=== PATIENT | female | born 2000 | race Caucasian/White ===

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

== ENCOUNTER → 2020-02-06 | Outpatient (CLI) | payer BC, SELFPAY | END | disposition home or self-care (01) | PROVIDERS: PCP Family Medicine; Visit Provider Family Medicine | DX: B34.9 Viral infection, unspecified (principal) | CPT/HCPCS: 87635; U0003 ==

== ENCOUNTER → 2020-05-03 16:05 | Outpatient (CLI) | payer BC, MEDICAID, SELFPAY ==
[2020-05-03 17:29] LABS: Absolute Lymphocyte Count 1.63 X10^3/uL (0.83-4.51); Absolute Neutrophil Count 9.4 X10^3/uL (2.0-7.7); Basophil# 0.05 X10^3/uL; Basophil% 0.4 % (0-1); Eosinophil# 0.01 X10^3/uL; Eosinophils% 0.1 % (0-5); Hematocrit 41.5 % (37-47); Hemoglobin 13.6 g/dL (12.0-15.0); Lymphocyte # 1.63 X10^3/ul (4.0); Lymphocyte % 13.8 % (19-41); Mean Corp Hgb Conc 32.8 g/dL (32-36); Mean Corpuscular Hgb 29.2 pg (27.0-32.0); Mean Corpuscular Volume 89.2 fL (81-99); Mean Platelet Vol. 10.7 fl (6.2-12.0); Monocyte# 0.72 X10^3/uL; Monocyte% 6.1 % (0-10); NRBC Flagged by Analyzer 0 % (0-5); Neutrophil # 9.37 X10^3/uL (2.7-7.7); Neutrophil % 79.2 % (47-70); Platelet Count 343 K/mm3 (150-450); RBC Distribution Width CV 12.7 % (11.6-14.6); RBC Distribution Width SD 41.3 fl (35.1-43.9); Red Blood Count 4.65 M/mm3 (4.2-5.4); White Blood Count 11.8 K/mm3 (4.4-11.0)
[2020-05-04 09:13] LABS: HIV - WCH Non-Reactive (Nonreactive); Hepatitis B Surface Antigen Non-Reactive (Nonreactive); Hepatitis C Antibody Non-Reactive (Nonreactive); Rubella IgG Reactive (Nonreactive)
[2020-05-06 03:03] LABS: Prenatal RPR NONREACTIVE (NONREACTIVE)
[2020-05-07 03:07] LABS: Chlamydia By Nucleic Acid AMP Negative (Negative)
[2020-05-07 20:09] LABS: Gonococcus By Nucleic Acid AMP Negative (Negative)
== END ==
PROVIDERS: PCP Family Medicine; Visit Provider Obstetrics & Gynecology
DX: Z11.3 Encounter for screening for infections with a predominantly sexual mode of transmission (principal); Z32.01 Encounter for pregnancy test, result positive
CPT/HCPCS: 36415; 85025; 86703; 86762; 86803; 87086; 87088; 87340; 87491; 87591

== ENCOUNTER → 2020-05-06 | Outpatient (CLI) | payer BC, MEDICAID, SELFPAY | END | disposition home or self-care (01) | LOC: LABSPEC 15:23 | PROVIDERS: PCP Family Medicine; Visit Provider Obstetrics & Gynecology | DX: N89.8 Other specified noninflammatory disorders of vagina (principal) | CPT/HCPCS: 87255 ==

== ENCOUNTER → 2020-08-31 | Outpatient (CLI) | payer BC, MEDICAID, SELFPAY ==
[2020-08-31 15:54] LABS: Hemoglobin 11.6 g/dL (12.0-15.0); Mean Corp Hgb Conc 33.1 g/dL (32-36); Mean Corpuscular Hgb 30.8 pg (27.0-32.0); Mean Corpuscular Volume 92.8 fL (81-99); Mean Platelet Vol. 11.6 fl (6.2-12.0); Platelet Count 293 K/mm3 (150-450); RBC Distribution Width CV 13.1 % (11.6-14.6); Red Blood Count 3.77 M/mm3 (4.2-5.4); White Blood Count 14.6 K/mm3 (4.4-11.0)
[2020-08-31 15:59] LABS: Glucose Challenge Gest 1H 50g 86 mg/dL (70-140)
== END | disposition home or self-care (01) ==
LOC: LABSPEC 13:36
PROVIDERS: PCP Family Medicine; Visit Provider Obstetrics & Gynecology
DX: Z34.82 Encounter for supervision of other normal pregnancy, second trimester (principal)
CPT/HCPCS: 82950; 85027

== ENCOUNTER 2020-11-02 12:00 | Outpatient (RCR) | payer MEDICAID, SELFPAY ==
--- NOTE | 2020-10-13 14:53 | HP.PTEVAL_ITS ---
Patient's Visit Information CHRISTINA SANCHEZ is a 19 year old F referred to Physical Therapy by Dr. Darinel Jacobs MD with a diagnosis of BACK PAIN WITH . Date of Evaluation: 10/13/20 Physical Therapist: Belinda Ingram PT, Cert MDT - Visit Plan Frequency: 2-3x /Week Duration: 4-6 Weeks Plan: AQUATIC THERAPY FOR PAIN RELEIF, POSTURE CORRECTION/STRENGTHENING, INSTRUCTION IN APPROPRIATE BODY MECHANICS AND ACTIVITY MODIFICATIONS. DLS STARTING WITH A NEUTRAL SPINE PROGRESSING ROM TOLERATED. NAHUM LE ROM, STRETCHING AND STRENGTHENING. HEP INSTRUCTION. - Subjective 30 WEEKS . Work/Leisure: CURRENTLY NOT WORKING. LIVING WITH MOM CURRENTLY BUT PLANNING TO MOVE OUT IN A MONTH OR TWO. Disability: NO. Present symptoms: LOW BACK PAIN. NAHUM HIP PAIN. ALSO NECK, UPPER AND MID BACK PAIN AT TIMES. RLS. PATIENT REPORTS TIGHTNESS IN LEGS WITH PROLONGED SITTING BUT DENIES NAHUM LE NUMBNESS AND TINGLING. NAHUM HAND AND ARM TINGLING IF SHE LAYS DOWN TOO LONG. COMES AND GOES. FREQUENT HELEN HORSES IN LEGS. Present since: APR 2020. Pain Scale: WORST 9/10, LEAST 3/10. Currently: /10. Commenced as a result of: CHRONIC LBP FOR NO APPARENT REASON. WORSE WITH . Symptoms at onset: LOW BACK PAIN. Worse: WALKING AROUND IN STORES, SITTING TOO LONG, SLEEPING ON SIDES BECAUSE OF (PRIOR TO WAS A STOMACH SLEEPER). Better: NOTHING. Disturbed sleep: YES. Previous history/Previous treatment: UNREMARKABLE. Coughing/sneezing/straining: POSITIVE. Gait: PATIENT REPORTS HER BACK PAIN IS CAUSING HER TO WALK MORE STIFF AND SHE IS WADDLING DUE TO . REPORTS GAIT IS TIME AND DISTANCE LIMITED DUE TO BACK PAIN. Difficulty initiating urinatin: NO. Accidents: NO. Unexplained weight loss: NO. Imaging: NONE. PMH/Recent major surgery: ADD, ADHD, DEPRESSION, ANXIETY AND DYSLEXIA. L FOOT FRACTURE 8TH GRADE - CLICKS BUT NO PAIN. OTHER: PATIENT REPORTS SHE HAS A 13 WK OLD LAB PUPPY AND SHE HAS BEEN BENDING, LIFTING AND TWISTING TO CARE FOR HER. - Objective Sitting/Standing Posture: POOR. FORWARD HEAD. VERY SLOUCHED THROUGHOUT SESSION. Lordosis: NORMAL TO INCREASED. Lateral shift: NO. Relevant shift: N/A. Active Correction of posture: WORSE. Other Observations: INDEP GAIT AND TRANSFERS WITHOUT ASSISTIVE DEVICE. Motor deficit: NAHUM UE'S AND LE'S 5/5 EXCEPT HIPS AND SCAPULAR REGIONS GRADED 4/5. Sensory deficit: NAHUM UE AND LE LIGHT TOUCH SENSATION INTACT AND SYMMETRICAL. ROM deficit: NAHUM UE'S AND LE'S WFL. Reflexes: 2/3 NAHUM UE'S AND LE'S. Dural Signs: NEGATIVE NAHUM UE'S AND LE'S. Lumbar mvmt loss: flex - MOD. ext - NIL. R SG - NIL. L SG - NIL. CERVICAL MVMT LOSS: CERVICAL ROM WFL ALL PLANES. THORACIC MVMT LOSS: NAHUM ROT WFL. PATIENT C/O INCREASED PAIN WITH ALL SPINE TESTING. Core strength: POOR. Palpation: PATIENT C/O TENDERNESS THROUGHOUT HER SPINE WITH LIGHT PALPATION. TREATMENT: NEUROMUSCULAR REEDUCATION - RETRAINING OF MVMT AND POSTURE FOR SITTING, LYING AND STANDING ACTIVITIES. SPECIFICALL SPENT TIME WITH INSTRUCTION REGUARDING PUPPY CARE. - Goals Goal 1:: DECREASE C/O BACK PAIN Goal Time Frame: 4-6 Weeks Goal 2:: IMPROVE WALKING, SITTING, STANDING, SLEEP, SOCIAL LIFE, TRAVEL AND WORK/HOMEMAKING FUNCTION. Goal Time Frame: 4-6 Weeks Goal 3:: INSTRUCT IN PROPHYLAXIS Goal Time Frame: 4-6 Weeks - Anticipated Interventions Patient/Client Instruction: Educate patient on: Condition, Plan of Care, Risk Factors For the Purpose of:: To improve self management Therapeutic Exercise to Include: Strength training, Body mechanics, Postural training, Neuromotor development, In an aquatic setting, Dynamic Lumbar Stabilization For the Purpose of:: To decrease pain, To improve muscle performance and motor function, To increase tolerance to activity/condition/position, To improve ability of physical actions for home/community/work/leisure Thank you for the opportunity to evaluate your patient. For Medicare and Medicare HMO plans, please review the plan of care and approve it. It will need to be FAXED BACK to us at [phone] for Medicare purposes. For Medicare only, by signing this I certify the plan of care. Please let me know if there are questions or concerns regarding this plan of care. Physician Signature: ____Date:
--- NOTE | 2021-02-22 13:28 | HP.PT.NRP ---
CHRISTINA GUERRERO LAURA was seen in my office for initial evaluation on 10/13/20. The following Plan of Care was established for this patient: Initial Frequency: 2-3x /Week Initial Duration: 4-6 Weeks Patient/Client Instruction: Educate patient on: Condition, Plan of Care, Risk Factors For the Purpose of:: To improve self management Therapeutic Exercise to Include: Strength training, Body mechanics, Postural training, Neuromotor development, In an aquatic setting, Dynamic Lumbar Stabilization For the Purpose of:: To decrease pain, To improve muscle performance and motor function, To increase tolerance to activity/condition/position, To improve ability of physical actions for home/community/work/leisure This patient was last seen in our office 11/02/20. Pertinent comments regarding their Physical therapy will appear below: This patient has not returned to Physical Therapy and is appropriate to return to MD for further follow-up as needed. At this point I will be discontinuing this patient from physical therapy. I would be happy to see this patient again in the future if found appropriate by the physician. Thank you! Belinda Ingram, PT, Cert MDT Balance/Gait/Functional tests - Balance/Special Test Scores Oswestry Low Back Score: 24
== END 2020-11-02 19:00 | disposition home or self-care (01) ==
LOC: PT 12:00
PROVIDERS: PCP Family Medicine; Referring Provider Obstetrics & Gynecology; Visit Provider Obstetrics & Gynecology
DX: O26.90 Pregnancy related conditions, unspecified, unspecified trimester (principal); M54.9 Dorsalgia, unspecified; Z3A.00 Weeks of gestation of pregnancy not specified
CPT/HCPCS: 97112; 97113; 97162

== ENCOUNTER 2020-11-08 19:40 | Outpatient (CLI) | payer MEDICAID, SELFPAY ==
[2020-11-08 20:10] VITALS: PULSE 114; O2SAT 97
[2020-11-08 20:13] VITALS: BP 113/72; PULSE 110; TEMP 36.1
[2020-11-08 20:36] VITALS: BMI 33.6
[2020-11-08 21:02] LABS: Color, Urine Yellow (Yellow); Glucose, Dipstick Normal (Normal); Ketone-Dipstick Negative (Negative); Leukocyte Esterase-Dipstick 500 /ul (Negative); Nitrite-Dipstick Negative (Negative); Occult Blood-Urine Negative /ul (Negative); Protein-Dipstick 30 mg/dl (Negative); Urine Bilirubin Dipstick Negative (Negative); Urine Clarity Sl. Cloudy (Clear); Urine Urobilinogen 1 mg/dl (Normal)
[2020-11-08 21:24] VITALS: PULSE 86; O2SAT 100
[2020-11-08] MEDS: Nitrofurantoin Macrocrystals 100 MG Capsule PO (22:48)
--- NOTE | 2020-11-09 08:35 | OB.TRI.NOTE ---
HPI - General HPI Narrative CHRISTINA SANCHEZ, is a 20 FG1 @ 34 wga who presents with c/o lower abdominal pain. Maternal Data Information CHERRY Calculator Estimated Delivery Date Method Current WG Current Estimate 12/20/20 Manual 34w 1d PFSH PFSH Home Medications [id number] [] 1 tab PO DAILY 11/08/20 [History Last Taken 11/08/20 08:00] valacyclovir [Valtrex] 1,000 mg PO DAILY 11/08/20 [History Last Taken 11/08/20 08:00] Allergy/AdvReac Type Severity Reaction Status Date / Time No Known Allergies Allergy Verified 11/08/20 20:40 Social History Smoking Status: Never smoker History 1 Elective abortions Hx Para 0 Spontaneous abortions Hx # Term Pregnancies Ectopic pregnancies Hx # Pregnancies Multiple births # of living children NST FHR Rate Baby A Baseline: 130 Variability:: Moderate Accelerations:: 15 x 15 Decelerations:: None NST Reactive:: Yes FHR Category:: Category I Uterine Activity:: 09/23 Assessment & Plan (1) 34 weeks gestation of : PLAN: Cervix unfavorable per RN exam, no evidence of labor (2) Cystitis: COMMENT: U/A suggests UTI PLAN: Macrbid x 1 given Pt to order picker rx today Ucx pending
== END 2020-11-08 23:00 | disposition home or self-care (01) ==
LOC: WPOUT 19:46 → WP 19:47
PROVIDERS: PCP Family Medicine; Visit Provider Obstetrics & Gynecology
DX: O23.13 Infections of bladder in pregnancy, third trimester (principal); Z3A.34 34 weeks gestation of pregnancy
CPT/HCPCS: 59025; 59050; 81002; 87086; 87088; 99218; G0378

== ENCOUNTER 2020-11-16 19:00 | Outpatient (CLI) | payer MEDICAID, SELFPAY ==
[2020-11-16 19:24] VITALS: PULSE 107; O2SAT 97
[2020-11-16 19:29] VITALS: PULSE 98; O2SAT 98
[2020-11-16 19:35] VITALS: BP 107/68; PULSE 107
[2020-11-16 19:45] VITALS: BMI 33.5
--- NOTE | 2020-11-16 20:46 | OB.TRI.NOTE ---
HPI - General HPI Narrative CHRISTINA SANCHEZ, is a 20 F who presents contractions Maternal Data Information CHERRY Calculator Estimated Delivery Date Method Current WG Current Estimate 12/20/20 Manual 35w 2d PFSH PFSH Home Medications [id number] [] 1 tab PO DAILY 11/08/20 [History Last Taken 11/16/20 09:00] valacyclovir [Valtrex] 1,000 mg PO DAILY 11/08/20 [History Last Taken 11/16/20 09:00] Allergy/AdvReac Type Severity Reaction Status Date / Time No Known Allergies Allergy Verified 11/16/20 19:48 Social History Smoking Status: Never smoker History 1 Elective abortions Hx Para 0 Spontaneous abortions Hx # Term Pregnancies Ectopic pregnancies Hx # Pregnancies Multiple births # of living children NST FHR Rate Baby A Baseline: 120 Variability:: Moderate Accelerations:: 15 x 15 Decelerations:: None NST Reactive:: Yes Uterine Activity:: Every 5 to 10minutes Assessment & Plan (1) : PLAN: Patient arrives with contractions. 1 cm no sign of labor. Okay to discharge home follow-up at scheduled appointments
== END 2020-11-16 21:18 | disposition home or self-care (01) ==
LOC: WPOUT 19:06 → WP 19:07
PROVIDERS: PCP Family Medicine; Visit Provider Obstetrics & Gynecology
DX: Z34.93 Encounter for supervision of normal pregnancy, unspecified, third trimester (principal); Z3A.35 35 weeks gestation of pregnancy
CPT/HCPCS: 59025; 59050; 99218; G0378

== ENCOUNTER → 2020-12-01 | Outpatient (CLI) | payer MEDICAID, SELFPAY | END | disposition home or self-care (01) | LOC: LABSPEC 13:39 | PROVIDERS: PCP Family Medicine; Visit Provider Obstetrics & Gynecology | DX: Z36.85 Encounter for antenatal screening for Streptococcus B (principal) | CPT/HCPCS: 87081 ==

== ENCOUNTER 2020-12-14 19:20 | Outpatient (CLI) | payer MEDICAID, SELFPAY ==
[2020-12-14 19:43] VITALS: BP 117/72; PULSE 127; TEMP 36.2; O2SAT 97
[2020-12-14 19:48] VITALS: PULSE 120; O2SAT 98
[2020-12-14 19:51] VITALS: BMI 33.0
[2020-12-14 19:53] VITALS: PULSE 115; O2SAT 98
[2020-12-14 20:30] LABS: ROM Internal Control Test YES-OK TO RESULT pt. (Internal QC); ROM Patient Test Negative (Negative)
--- NOTE | 2020-12-21 08:09 | OB.TRI.NOTE ---
HPI - General HPI Narrative CHRISTINA SANCHEZ, is a 20 F who presents at 40 1/7 weeks gestation with c/o contractions and leaking fluid. Maternal Data Information CHERRY Calculator Estimated Delivery Date Method Current WG Current Estimate 12/20/20 Manual 40w 2d PFSH PFSH Home Medications [id number] [] 1 tab PO DAILY 11/08/20 [History Last Taken 12/20/20] valacyclovir [Valtrex] 1,000 mg PO DAILY 11/08/20 [History Last Taken 12/20/20] Allergy/AdvReac Type Severity Reaction Status Date / Time No Known Allergies Allergy Verified 12/20/20 23:26 Social History Smoking Status: Never smoker History 1 Elective abortions Hx Para 0 Spontaneous abortions Hx # Term Pregnancies Ectopic pregnancies Hx # Pregnancies Multiple births # of living children Physical Exam Narrative SVE 3/70/-3 overnight, then 3/60/-2 per RN in morning NST FHR Rate Baby A Baseline: 120 Variability:: Moderate Accelerations:: 15 x 15 Decelerations:: None NST Reactive:: Yes FHR Category:: Category I Uterine Activity:: irritability Assessment & Plan (1) : QUALIFIERS: Weeks of gestation: 40 weeks Qualified Code(s): Z3A.40 - 40 weeks gestation of PLAN: FHR initially Cat II with low baseline, moderate variability maintained and few variable decelerations with return to Cat I tracing following observation period overnight. ROM plus negative. Patient discharged to home (2) False labor after 37 completed weeks of gestation:
== END 2020-12-14 21:00 | disposition home or self-care (01) ==
LOC: WPOUT 19:27 → WP 19:28
PROVIDERS: PCP Family Medicine; Visit Provider Obstetrics & Gynecology
DX: O47.1 False labor at or after 37 completed weeks of gestation (principal); Z3A.40 40 weeks gestation of pregnancy
CPT/HCPCS: 59025; 59050; 84112; 99218; G0378

== ENCOUNTER 2020-12-20 23:00 | Outpatient (CLI) | payer MEDICAID, SELFPAY ==
[2020-12-20 23:12] VITALS: BMI 33.0
[2020-12-20 23:14] VITALS: TEMP 36.5
[2020-12-20 23:16] VITALS: BP 127/66; PULSE 115; PULSE 118; O2SAT 97
[2020-12-20 23:21] VITALS: PULSE 114; O2SAT 97
[2020-12-20 23:36] VITALS: PULSE 102; O2SAT 98
[2020-12-20 23:50] VITALS: PULSE 102; O2SAT 97
[2020-12-21] VITALS (12 sets, daily range): BP systolic 119; BP diastolic 73; PULSE 74–109; TEMP 36.4; O2SAT 97–100
[2020-12-21 00:18] LABS: ROM Internal Control Test YES-OK TO RESULT pt. (Internal QC); ROM Patient Test Negative (Negative)
--- NOTE | 2020-12-29 21:52 | OB.TRI.HP_ITS ---
HPI - General HPI Narrative CHRISTINA SANCHEZ, is a 20 F who presents to labor and delivery with some contractions. Maternal Data Information CHERRY Calculator Estimated Delivery Date Method Current WG Current Estimate 12/20/20 [facility] Medical History (Updated 12/23/20 @ 19:[address] Laura Esposito MD) Anxiety Asthma Depression Genital herpes affecting Home Medications [id number] 1 tab PO DAILY 11/08/20 [History Last Taken 12/22/20 10:00] ibuprofen 600 mg PO Q8H PRN PRN #30 tab 12/24/20 [Rx Last Taken Unknown] Allergy/AdvReac Type Severity Reaction Status Date / Time No Known Allergies Allergy Verified 12/20/20 23:26 Social History Smoking Status: Current some day smoker History 1 Elective abortions Hx Para 0 Spontaneous abortions Hx # Term Pregnancies Ectopic pregnancies Hx # Pregnancies Multiple births # of living children
== END 2020-12-21 08:04 | disposition home or self-care (01) ==
LOC: WPOUT 23:10 → WP 23:10
PROVIDERS: PCP Family Medicine; Visit Provider Obstetrics & Gynecology
DX: O47.1 False labor at or after 37 completed weeks of gestation (principal); Z3A.41 41 weeks gestation of pregnancy
CPT/HCPCS: 59025; 59050; 84112; 99218; G0378

== ENCOUNTER 2020-12-23 08:45 | Inpatient (IN) | payer MEDICAID, SELFPAY ==
[2020-12-23] VITALS (42 sets, daily range): BP systolic 102–164; BP diastolic 56–101; PULSE 73–111; TEMP 36.2–37.2; O2SAT 92–100; BMI 32.8
[2020-12-23] MEDS: Lactated Ringers 1,000 ML 50 ML IV (09:20)
[2020-12-23 09:33] LABS: Absolute Lymphocyte Count 2.56 X10^3/uL (0.83-4.51); Absolute Neutrophil Count 11.1 X10^3/uL (2.0-7.7); Basophil# 0.04 X10^3/uL; Basophil% 0.3 % (0-1); Eosinophil# 0.01 X10^3/uL; Eosinophils% 0.1 % (0-5); Hematocrit 34.6 % (37-47); Lymphocyte # 2.56 X10^3/ul (0.83-4.51); Lymphocyte % 17.7 % (19-41); Mean Corp Hgb Conc 31.8 g/dL (32-36); Mean Corpuscular Hgb 27.4 pg (27.0-32.0); Mean Corpuscular Volume 86.3 fL (81-99); Mean Platelet Vol. 10.8 fl (6.2-12.0); Monocyte# 0.72 X10^3/uL; NRBC Flagged by Analyzer 0 % (0-5); Neutrophil # 11.07 X10^3/uL (2.7-7.7); Neutrophil % 76.2 % (47-70); Platelet Count 337 K/mm3 (150-450); RBC Distribution Width CV 14.8 % (11.6-14.6); RBC Distribution Width SD 46.8 fl (35.1-43.9); Red Blood Count 4.01 M/mm3 (4.2-5.4); White Blood Count 14.5 K/mm3 (4.4-11.0)
--- NOTE | 2020-12-23 09:44 | PCM.HP.BLA ---
History and Physical Date of Admission: 12/23/20 ACOG ANTEPARTUM RECORD - HISTORY AND PHYSICAL (12/23/2020) Name: CHRISTINA SANCHZE History of this : This is a 20 year old [id number] presents at 40 wks + 3 days gestation in early elective labor. OB Physician: Darinel Jacobs MD 's Physician: UNDECIDED ...................................................................... : 00 Age: 20 Address: [address] [place] [address] Phone: H) [phone] Insurance Carrier: [place] [id number] Emergency Contact: KWAKU MORENO/BOYFRIEND [phone] ...................................................................... Final CHERRY: 12/20/20 By Ultrasound: PARITY: (G-Total Pregnancies P-Fullterm,Premature,Induced AB,Spont AB, Ectopics, Multiple,Living) CHERRY CONFIRMATION: By LMP: 03/15/20 Final CHERRY: 12/20/20 OB PROBLEM LIST: EPDS = 7 Hx of depression/anxiety. Past treatment with meds/counseling. 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 Past treatment with meds/counseling. Past SI. Intially wanted carrier and quad screening but decided against it later Undecided about an epidural, as she is scared of needles. 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 ALLERGIES: No Known Drug Allergies MEDICATIONS: doxylamine succinate 25 mg tablet 1 PO QD Macrobid 100 mg capsule 1 tab po bid x 7 days + DHA 28 mg iron- 975 mcg-200 mg combo pack daily promethazine 12.5 mg tablet 1 PO every four to six hours PRN for Nausea pyridoxine (vitamin B6) 25 mg tablet 1 PO QD Valtrex 1 gram tablet 1 PO BID Valtrex 1 gram tablet 1 PO QD SOCIAL HISTORY: Smoking - Advised to quit and Uses Vapor Pen Alcohol Use - RARELY and not while Diet - no particular diet Lifestyle - moderate stress lifestyle and single Exercise - none Employer - unemployed Job Description - Illicit Drug Use - uses marijuana and not while Sexual Activity - single sexual partner Residence - Lives with mom Place of - [place], [place] Spouse-Sig Other Name - Kwaku Moreno Spouse-Sig 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 DEL DATE GEST LAB WT LB WT OZ TYPE ANES LABOR TX ANTEPARTUM FLOW CHART VISIT GE RTC FU F F OK U U DATE WK MD WKS HT PN HR M SS BP ED WT OK GL D EF ST __ ____ ___ __ __ ___ __ __ __ ___ __ __ __ ___ __ 08 Dec 40 JMW 6 38 V + + 128/70 sl 193 - - 3 80 -2 01 Dec JMW 1 38 + + 124/70 0 192 tr ne Nov JMW 1 38 V + + 114/70 0 193 tr ne 2+ 85 -2 18 Nov JMW 1 37 V + + 108/64 tr 195 1+ ne 2 75 -2 05 Nov JMW 1 35 + + 114/72 0 194 tr ne 07 Nov 13 JM 2 31 - + + 124/80 sl 195 tr - 16 Oct 11 JMW 3 28 + + 116/68 sl 195 tr ne 14 Oct 11 JMW + + 100/66 0 194 - - 18 September 06 JMW 4 24 + + 106/70 0 193 tr - Aug 03 CM 4 20 + ? 120/68 0 191 tr - Jun 29 JM 4 16 - + + 120/76 0 189 tr - May 28 JM 4 12 - + 108/70 0 187 1+ ne Apr 23 JM 4 8 - on 0 116/70 0 184 1+ - ANTEPARTUM NOTE(S): Dec 22 2020: Mild Cramping, Good FM, Induce per Request Dec 15 2020: L and D last PM was 3+ cm Dec 06 2020: Good FM Dec 01 2020: LARC, GBS today Nov 18 2020: Good FM Oct 20 2020: Feeling Well,Good FM Sep 29 2020: Doing Well, Low back pain-refer PT Sep 27 2020: Aug 31 2020: CBC,OGCT Today,Sono Today,Good FM Aug 06 2020: comp u/s today Jul 06 2020: some food cravings Jun 08 2020: May 14 2020: N/v would like something for this, U/s today COMPREHENSIVE ANTEPARTUM NOTE(S): Dec 22 2020: Scheduled for Cytotec Induction for 12/23/20 at 1900 to call at 1700 to confirm availability. Questions answered and consents signed. I spoke with Juanis MAST. VALDO Dec 15 2020: Christina Is here for PNV. Was in ER last night for poss ROM. Determined by swab was neg. Having good FM and no further LOF. Only BH ctx. States ER cervix check reveals 3.5 and 70%. Urine tr/neg. LSS Dec 06 2020: Christina is here for PNV. Would like cervix check today. Continues with BH ctx. No LOF. Having good FM. No edema noted today. Urine tr/neg. LSS Dec 03 2020: H taken to OB. tkg Dec 01 2020: Christina is here for PNV. Unable to obtain urine. Will try later. States she is having lots of BH ctx. No LOF but adds that she thinks she lost her mucous plug. Having good FM. Slight swelling noted in hands and feet. Voices no concerns or complaints today. LARC discussed and declined. Form signed. GBS today. LSS Urine obtained. 1+/neg. Very concentrated. LSS Nov 18 2020: Christina is here today for PNV. Quiet and withdrawn. Unable to leave urine specimen. Having good FM. States she has been feeling a little crampy in the lower abdomen. No LOF or vaginal drainage. Voices no other concerns. No edema noted today. Advised of GBS for next week apt. Urine tr/neg. LSS Oct 20 2020: 31wk, 1hr GTT wnl. JM Sep 29 2020: Christina is here for PNV. States that since visit on Sunday, has been having good FM. Feeling well with exception of lower back pain. Discussed sleeping position and pillow support under abdomen. Wants to see chiropractor but due to insurance, needs ref for memory care program resident. Would like to discuss this. Noticed slight edema in lower legs. None in hands. Urine tr/neg. LSS Sep 27 2020: Christina is here following call to Triage at 28w. as baby's movements have decreased the past day or so. States the past week has seemed less also- Since we got a new lab puppy. Asking if there's correlation- advised not likely. Feeling a bit crampy- urine somewhat concentrated. Suggested increasing fluid intake to as close to one gallon qd as she can or Gatorade could be a partial substitute. N Aug 06 2020: Glucola given with instructions. Reviewed at length with her and SO. She relates pain in epigastric area and at belly button when she sneezes. Pain not any other time. Discussed Tdap at length. LMT Aug 06 2020: 20/4w visit. Anatomy wnl, did not see face views due to positioning. US next visit. Glucola bottle given. F/u 4w. CM Jul 19 2020: Call Msg from 6:40 PM 07/17/20. Christina calling @ 17 wks 5 days w/ vomiting, loose stools both 5-6 x today. Temp 98.7. Voiding reporting pale yellow urine. She has been trying to drink plenty of fluids. Reassurred by color of her urine, sounds like she is doing well w/hydration and no Temp.. Advised should she develop a fever, to keep T < 100.4 w/fluids and Tylenol. For now, continue hydration w/ Jul 08 2020: TELEHEALTH NOB VIIST, 55 MINUTE DURATION. Christina is a 19 year old with an CHERRY of 12/20/2020, current GA is 16 w 3 d. She currently resides with her mother, but shares that she and SO/FOB, Jeremy Moreno, are planning to get a place together. This is Jeremy's first baby, and Christina states that he is involved and supportive. Her mother is also supportive. She is happy that they found out that th Jul 06 2020: Christina is here for visit. Had 3D u/s and is having a girl. She is feeling fine except she has cravings and if does not eat what she is craving she then will throw up. She asks if she can drink anything that is better for baby than water? Like Gatorade? Nope, water is the best unless dehydrated then an electrolyte drink may be helpful but water is really her best fluid for general hydr Jul 06 2020: 16wk, had 3D u/s in [place] that showed female gender. Initially desired quad and carrier screening, then declined with needle phobia. Anatomy u/s next visit. JM Jun 09 2020: TELEHEALTH NOB - did not answer phone. Message left to please call to reschedule. KENNEDY. Jun 08 2020: Christina is here with SO for PNV. Recently engaged. Stopped anti-nausea med. States it makes it worse. Using nothing at this point and says she is doing fine withou it. Some nause, no vomiting but able to keep food and fluids down. Urine concentrated and 1+/ng. Advised to increase fluid intake. LSS Jun 08 2020: 12wk, dizziness with diclegis and phenergan. To stop, nausea under control. Pt desires 3D ultrasound, to bring to next visit. ZAHRAA May 17 2020: TELEHEALTH JUANISSuraj Christina did not answer. Message left to call to reschedule. Lizz MAST. REVIEW OF SYSTEMS: GENERAL - Denies fever, or chills SKIN - Denies rash, new skin lesions, or change in moles EYES - Denies blurred vision, or change in visual acuity EARS - Denies ear pain, or difficulty hearing NOSE - Denies nasal congestion, discharge, or bleeding MOUTH - Denies sore throat, or difficulty swallowing NECK - Denies pain or swelling RESPIRATORY - Denies shortness of breath, cough, wheezing CARDIOVASCULAR - Denies palpitations, chest pain, orthopnea, PND, peripheral edema, syncope or claudication GASTROINTESTINAL - Denies nausea, vomiting, diarrhea, constipation, Denies abdominal pain, melena and or bright red blood GENITOURINARY - Denies dysuria, frequency of urination, urgency, or hesitancy MUSCULOSKELETAL - Denies joint or muscle pain, or back pain NEUROLOGICAL - Denies localized numbness, weakness, or tingling PSYCHIATRIC - Denies depression, anxiety, substance abuse or suicide attempts ENDOCRINE - Denies heat or cold intolerance, weight loss or gain, increasing thirst HEMATO-IMMUNOLOGIC - Denies easy bruising, bleeding, oral ulcerations or recurrent infections GENETICS SCREENING: Age 35+ years: No Thalassemia: No Neural Tube Defect: No Down Syndrome: No ARIELLA-SACHS: No Sickle Cell Disease: No Hemophilia: No Musc. Dystrophy: No Cystic Fibrosis: No-declines screening [place] Chorea: No Mental Retardation: No Fragile X: No Other genetic: No Other defects: No SABs/still births: No Drugs since LMP: No INFECTION HISTORY: High risk AIDS: No High risk Hepatitis: No Exposed to TB: No Exposed to Herpes: No Rash/viral illness since LMP: No History of STD: No Comments: HSV MENSTRUAL HISTORY: *Menses Amount/Duration: 3-4 DAYSMenses Regularity: IrregularMenarche (Age Onset): 12* PAST SUMMARY: PARITY: 1. Total Pregnancies............ 1 2. Full Term Pregnancies........ 0 3. Premature.................... 0 4. Abortions - Induced.......... 0 5. Abortions - Spontaneous...... 0 6. Ectopics..................... 0 7. Multiple Births.............. 0 8. Living Children.............. 0 PHYSICAL EXAMINATION General Appearence: 20 yo female in no acute distress Vital Signs: AF, VSS Heart: RRR without rubs or gallops Lungs: CTA x 2 Breasts: deferred Abdomen: gravid Pelvis: Cervix: Presentation: cephalic Station: Fetus: Size: AGA Movement: present Heart: present LAB TEST(S) ORDERED SINCE:03/25/20 12/23/2020 CBC W/DIFF, AUTOMATED 12/21/2020 (ROM) RUPTURE OF MEMBRANES 12/14/2020 (ROM) RUPTURE OF MEMBRANES 12/04/2020 RULE OUT BETA STREP (GRP. B) 11/10/2020 URINE CULTURE 11/08/2020 URINALYSIS, ROUTINE (DIPSTICK) 08/31/2020 GLUCOSE CHALLENGE GEST 1H 50G 08/31/2020 CBC-COMPLETE BLOOD CNT NO DIFF 05/09/2020 HSV CULTURE AND TYPING 05/07/2020 CHLAMYDIA/GC MARLYN APTIMA 05/06/2020 RPR 05/05/2020 CULTURE, URINE 05/04/2020 RUBELLA IGG 05/04/2020 HIV - [facility] 05/04/2020 HEPATITIS C ANTIBODY 05/04/2020 HEPATITIS B SURFACE ANTIGEN 05/03/2020 T AND S-NO CHARGE W/PNP 05/03/2020 CBC W/DIFF, AUTOMATED == ==== Order Observation Description Value Ref_Range A* Site == ==== CBC W/DIFF, AUT NOTE LARKIN CBC W/DIFF, AUT WBC 14.5 K/mm3 4.4-11.0 H ML CBC W/DIFF, AUT RBC 4.01 M/mm3 4.2-5.4 L ML CBC W/DIFF, AUT HGB 11.0 g/dL 12.0-15.0 L ML CBC W/DIFF, AUT HCT 34.6 37-47 L ML CBC W/DIFF, AUT MCV 86.3 fL 81-99 ML CBC W/DIFF, AUT MCH 27.4 pg 27.0-32.0 ML CBC W/DIFF, AUT MCHC 31.8 g/dL 32-36 L ML CBC W/DIFF, AUT RDW CV 14.8 11.6-14.6 H ML CBC W/DIFF, AUT RDW SD 46.8 fl 35.1-43.9 H ML CBC W/DIFF, AUT PLT 337 K/mm3 150-450 ML CBC W/DIFF, AUT MPV 10.8 fl 6.2-12.0 ML CBC W/DIFF, AUT NEUT% 76.2 47-70 H ML CBC W/DIFF, AUT LY% 17.7 19-41 L ML CBC W/DIFF, AUT MONO% 5.0 0-10 ML CBC W/DIFF, AUT EO% 0.1 0-5 ML CBC W/DIFF, AUT BASO% 0.3 0-1 ML CBC W/DIFF, AUT IG% 0.700 0.0-0.9 ML IG% - Immature Granulocytes (promyelocytes, myelocytes and metamyelocytes) > 1% indicates that a LEFT SHIFT is Present. CBC W/DIFF, AUT ABSOLUTE NEUT 11.1 X10 3/uL 2.0-7.7 H ML CBC W/DIFF, AUT ABSOLUTE LYMPH 2.56 X10 3/uL 0.83-4.51 ML CBC W/DIFF, AUT NUCLEATED RBC 0 0-5 ML (ROM) RUPTURE O NOTE LARKIN (ROM) RUPTURE O ROM Negative Negative ML Amniotic fluid not present indicates No Rupture of Membranes at time of specimen collection. (ROM) RUPTURE O NOTE LARKIN (ROM) RUPTURE O ROM Negative Negative ML Amniotic fluid not present indicates No Rupture of Membranes at time of specimen collection. RULE OUT BETA S NOTE LARKIN URINE CULTURE NOTE LARKIN URINALYSIS, ROU NOTE LARKIN URINALYSIS, ROU COLOR Yellow Yellow ML URINALYSIS, ROU URINE CLARITY Sl. Cloudy Clear ML URINALYSIS, ROU GLUCOSE, UR Normal mg/dl Normal ML URINALYSIS, ROU BILIRUBIN URINE Negative mg/dL Negative ML URINALYSIS, ROU KETONE UR Negative mg/dl Negative ML URINALYSIS, ROU SP.GR. DIPSTX 1.020 1.002-1.030 ML URINALYSIS, ROU PH UR 6.0 5.0 - 8.0 ML URINALYSIS, ROU PROT DIPSTX 30 mg/dl Negative A ML URINALYSIS, ROU UROBILI 1 mg/dl Normal A ML URINALYSIS, ROU NITRITE Negative Negative ML URINALYSIS, ROU OCCULT BLOOD-UR Negative /ul Negative ML URINALYSIS, ROU LEUK ESTERASE 500 /ul Negative A ML GLUCOSE CHALLEN NOTE LARKIN GLUCOSE CHALLEN GLU GEST 50G 1H 86 mg/dL 70-140 ML CBC-COMPLETE BL NOTE LARKIN CBC-COMPLETE BL WBC 14.6 K/mm3 4.4-11.0 H ML CBC-COMPLETE BL RBC 3.77 M/mm3 4.2-5.4 L ML CBC-COMPLETE BL HGB 11.6 g/dL 12.0-15.0 L ML CBC-COMPLETE BL HCT 35.0 37-47 L ML CBC-COMPLETE BL MCV 92.8 fL 81-99 ML CBC-COMPLETE BL MCH 30.8 pg 27.0-32.0 ML CBC-COMPLETE BL MCHC 33.1 g/dL 32-36 ML CBC-COMPLETE BL RDW CV 13.1 11.6-14.6 ML CBC-COMPLETE BL RDW SD 44.0 fl 35.1-43.9 H ML CBC-COMPLETE BL PLT 293 K/mm3 150-450 ML CBC-COMPLETE BL MPV 11.6 fl 6.2-12.0 ML HSV CULTURE AND NOTE LARKIN HSV CULTURE AND HSV C AND T 8250 Comment . H LC Positive for Herpes simplex virus type-1. Typing was confirmed by monoclonal antibody microscopic immunofluorescence. Performed at: [facility] [id number] Felt Puller: Tunde Dietz PhD, Phone: [phone] CHLAMYDIA/GC NA NOTE LARKIN CHLAMYDIA/GC NA CHLAMY,NUC ACID Negative Negative LC CHLAMYDIA/GC NA GC BY NUC ACID Negative Negative LC Performed at: - [facility] [id number] Felt Puller: Yarely Waggoner MD, Phone: [phone] RPR NOTE LARKIN RPR RPR NONREACTIVE NONREACTIVE ML CULTURE, URINE NOTE LARIKN HEPATITIS C ANT NOTE LARKIN HEPATITIS C ANT HEPATITIS C AB Non-Reactive Nonreactive ML Non Reactive: < 0.8 Equivocal: >/= 0.8 to < 1.0 Reactive: >/= 1.0 The CDC recommends that a reactive/equivocal HCV antibody result be followed up by the HCV Nucleic Acid Amplification test ([id number]) HEPATITIS B ILSA NOTE LARKIN HEPATITIS B ILSA HEPB SURFACE AG Non-Reactive Nonreactive ML HIV - W[facility] NOTE LARKIN HIV - [facility] HIV - [facility] Non-Reactive Nonreactive ML RUBELLA IGG NOTE LARKIN RUBELLA IGG RUBELLA IGG Reactive Nonreactive ML Antibody Results Interpretation of Immune Status Non Reactive Presumed Non-Immune Equivocal Equivocal Reactive Presumed Immune Reason for Type AND Screen/Red Cells: Surgery? N [facility]~[address] [place], [address]~ T AND BLOOD TYPE GEL O POSITIVE N ML T AND AB SCREEN GEL NEGATIVE N ML CBC W/DIFF, AUT NOTE LARKIN CBC W/DIFF, AUT WBC 11.8 K/mm3 4.4-11.0 H ML CBC W/DIFF, AUT RBC 4.65 M/mm3 4.2-5.4 ML CBC W/DIFF, AUT HGB 13.6 g/dL 12.0-15.0 ML CBC W/DIFF, AUT HCT 41.5 % 37-47 ML CBC W/DIFF, AUT MCV 89.2 fL 81-99 ML CBC W/DIFF, AUT MCH 29.2 pg 27.0-32.0 ML CBC W/DIFF, AUT MCHC 32.8 g/dL 32-36 ML CBC W/DIFF, AUT RDW CV 12.7 % 11.6-14.6 ML CBC W/DIFF, AUT RDW SD 41.3 fl 35.1-43.9 ML CBC W/DIFF, AUT PLT 343 K/mm3 150-450 ML CBC W/DIFF, AUT MPV 10.7 fl 6.2-12.0 ML CBC W/DIFF, AUT NEUT% 79.2 % 47-70 H ML CBC W/DIFF, AUT LY% 13.8 % 19-41 L ML CBC W/DIFF, AUT MONO% 6.1 % 0-10 ML CBC W/DIFF, AUT EO% 0.1 % 0-5 ML CBC W/DIFF, AUT BASO% 0.4 % 0-1 ML CBC W/DIFF, AUT IM GRAN % 0.400 % 0.0-0.9 ML IG% - Immature Granulocytes (promyelocytes, myelocytes and metamyelocytes) > 1% indicates that a LEFT SHIFT is Present. CBC W/DIFF, AUT ABSOLUTE NEUT 9.4 X10 3/uL 2.0-7.7 H ML CBC W/DIFF, AUT ABSOLUTE LYMPH 1.63 X10 3/uL 0.83-4.51 ML CBC W/DIFF, AUT NRBC, FLAGGED 0 % 0-5 ML Group B Beta Streptococcus is not isolated. Mixed Gram Positive Organisms Point Lay Count 11,000-25,000 MIXC Mixed contaminants. Submit a new specimen if indicated. [facility] [address] [place] [address]. [address] [place] [address] / REHABILITATION SERVICES INITIAL EVALUATION MR#: [id number] Acct: [id number] Name: CHRISTINA SANCHEZ Rep #: [id number] : 2000 19 From: Belinda Ingram PT, Cert. MDT Referring Dr.: Dr. Darinel Jacobs MD Status: REG RCR Insurance: [employer] [facility] SELF PAY INSURANCE Patient's Visit Information CHRISTINA SANCHEZ is a 19 year old F referred to Physical Therapy by Dr. Darinel Jacobs MD with a diagnosis of BACK PAIN WITH . Date of Evaluation: 10/13/20 Physical Therapist: Belinda Ingram, PT, Cert MDT - Visit Plan Frequency: 2-3x /Week Duration: 4-6 Weeks Plan: AQUATIC THERAPY FOR PAIN RELEIF, POSTURE CORRECTION/STRENGTHENING, INSTRUCTION IN APPROPRIATE BODY MECHANICS AND ACTIVITY MODIFICATIONS. DLS STARTING WITH A NEUTRAL SPINE PROGRESSING ROM TOLERATED. NAHUM LE ROM, STRETCHING AND STRENGTHENING. HEP INSTRUCTION. - Subjective 30 WEEKS . Work/Leisure: CURRENTLY NOT WORKING. LIVING WITH MOM CURRENTLY BUT PLANNING TO MOVE OUT IN A MONTH OR TWO. Disability: NO. Present symptoms: LOW BACK PAIN. NAHUM HIP PAIN. ALSO NECK, UPPER AND MID BACK PAIN AT TIMES. RLS. PATIENT REPORTS TIGHTNESS IN LEGS WITH PROLONGED SITTING BUT DENIES NAHUM LE NUMBNESS AND TINGLING. NAHUM HAND AND ARM TINGLING IF SHE LAYS DOWN TOO LONG. COMES AND GOES. FREQUENT HELNE HORSES IN LEGS. Present since: APR 2020. Pain Scale: WORST 9/10, LEAST 3/10. Currently: 09/23. Commenced as a result of: CHRONIC LBP FOR NO APPARENT REASON. WORSE WITH . Symptoms at onset: LOW BACK PAIN. Worse: WALKING AROUND IN STORES, SITTING TOO LONG, SLEEPING ON SIDES BECAUSE OF (PRIOR TO WAS A STOMACH SLEEPER). Better: NOTHING. Disturbed sleep: YES. Previous history/Previous treatment: UNREMARKABLE. Coughing/sneezing/straining: POSITIVE. Gait: PATIENT REPORTS HER BACK PAIN IS CAUSING HER TO WALK MORE STIFF AND SHE IS WADDLING DUE TO . REPORTS GAIT IS TIME AND DISTANCE LIMITED DUE TO BACK PAIN. Difficulty initiating urinatin: NO. Accidents: NO. Unexplained weight loss: NO. Imaging: NONE. PMH/Recent major surgery: ADD, ADHD, DEPRESSION, ANXIETY AND DYSLEXIA. L FOOT FRACTURE 8TH GRADE - CLICKS BUT NO PAIN. OTHER: PATIENT REPORTS SHE HAS A 13 WK OLD LAB PUPPY AND SHE HAS BEEN BENDING, LIFTING AND TWISTING TO CARE FOR HER. - Objective Sitting/Standing Posture: POOR. FORWARD HEAD. VERY SLOUCHED THROUGHOUT SESSION. Lordosis: NORMAL TO INCREASED. Lateral shift: NO. Relevant shift: N/A. Active Correction of posture: WORSE. Other Observations: INDEP GAIT AND TRANSFERS WITHOUT ASSISTIVE DEVICE. Motor deficit: NAHUM UE'S AND LE'S 5/5 EXCEPT HIPS AND SCAPULAR REGIONS GRADED 4/5. Sensory deficit: NAHUM UE AND LE LIGHT TOUCH SENSATION INTACT AND SYMMETRICAL. ROM deficit: NAHUM UE'S AND LE'S WFL. Reflexes: 2/3 NAHUM UE'S AND LE'S. Dural Signs: NEGATIVE NAHUM UE'S AND LE'S. Lumbar mvmt loss: flex - MOD. ext - NIL. R SG - NIL. L SG - NIL. CERVICAL MVMT LOSS: CERVICAL ROM WFL ALL PLANES. THORACIC MVMT LOSS: NAHUM ROT WFL. PATIENT C/O INCREASED PAIN WITH ALL SPINE TESTING. Core strength: POOR. Palpation: PATIENT C/O TENDERNESS THROUGHOUT HER SPINE WITH LIGHT PALPATION. TREATMENT: NEUROMUSCULAR REEDUCATION - RETRAINING OF MVMT AND POSTURE FOR SITTING, LYING AND STANDING ACTIVITIES. SPECIFICALL SPENT TIME WITH INSTRUCTION REGUARDING PUPPY CARE. - Goals Goal 1:: DECREASE C/O BACK PAIN Goal Time Frame: 4-6 Weeks Goal 2:: IMPROVE WALKING, SITTING, STANDING, SLEEP, SOCIAL LIFE, TRAVEL AND WORK/HOMEMAKING FUNCTION. Goal Time Frame: 4-6 Weeks Goal 3:: INSTRUCT IN PROPHYLAXIS Goal Time Frame: 4-6 Weeks - Anticipated Interventions Patient/Client Instruction: Educate patient on: Condition, Plan of Care, Risk Factors For the Purpose of:: To improve self management Therapeutic Exercise to Include: Strength training, Body mechanics, Postural training, Neuromotor development, In an aquatic setting, Dynamic Lumbar Stabilization For the Purpose of:: To decrease pain, To improve muscle performance and motor function, To increase tolerance to activity/condition/position, To improve ability of physical actions for home/community/work/leisure Thank you for the opportunity to evaluate your patient. For Medicare and Medicare HMO plans, please review the plan of care and approve it. It will need to be FAXED BACK to us at [phone] for Medicare purposes. For Medicare only, by signing this I certify the plan of care. Please let me know if there are questions or concerns regarding this plan of care. Physician Signature: Date: <Electronically signed by Belinda Ingram PT, Cert. MDT> 10/14/20 [id number] CC: Dr. Pedro Pablo Gonzalez MD; Dr. Darinel Jacobs MD JOANA Signed Urine Culture ORGANISM 1: Mixed Gram Pos AND Gram Neg Org Point Lay Count 1000-10,000 MIX CULTURE Mixed contaminants. Submit a new specimen if indicated. == ==== Impression /Plan: 40 wks + 3 days intrauterine in early elective labor. Plan rupture of membranes and Pitocin augmentation if needed. Preparations in progress for delivery.
[2020-12-23] MEDS: fentaNYL 100 MCG/2 ML Ampul IV ×2 (10:40→10:58)
[2020-12-23] MEDS: Lactated Ringers 500 ML 999 ML IV ×2 (11:35→14:45)
[2020-12-23] MEDS: Ondansetron 4 MG/2 ML Vial IV ×2 (11:41→22:45)
[2020-12-23] MEDS: fentaNYL-bupivacaine (epidural) 100 ML BAG EPIDURAL (12:24)
[2020-12-23] MEDS: Acetaminophen 500 MG Tablet PO (12:37)
[2020-12-23] MEDS: Lactated Ringers 1,000 ML 200 ML IV (15:30)
[2020-12-23] MEDS: Oxytocin 30 units/NS 500 ml 30 UNITS/500 ML IV.SOLN 334 UNITS IV (18:35)
--- NOTE | 2020-12-23 19:45 | EX.PCM.OBRPT ---
Assessment & Plan (1) (spontaneous vaginal delivery): Maternal Data Information CHERRY Calculator Estimated Delivery Date Method Current WG Current Estimate 12/20/20 Manual 40w 3d Vaginal Delivery Maternal Presentation Maternal Presentation: Active Labor Operative Information Date of Procedure: 12/23/20 Pre-Operative Diagnosis: 1. 40-3/7 weeks gestation Post-Operative Diagnosis: 1. 40-3/7 weeks gestation Type of Anesthesia: Epidural Anesthesiologist: Erik Chiu Drain: Yuan to straight drain Estimated Blood Loss: 400 mL Time of Delivery: 18:26 Findings Description of Procedure: Patient was fully dilated and +4 station on my arrival. She pushed to deliver a vigorous female in OA over an intact perineum. The infant was placed on the maternal abdomen further attended by nursery personnel. The cord was doubly clamped and cut at approximately 3 minutes of life. The placenta delivered spontaneously and appeared intact on inspection however there was a gush of blood with rapid bleeding without hemorrhage. An intrauterine exam was performed with retrieval of small portion of placenta retained. The bleeding quickly resolved and the fundus and lower uterine segment firmed up with resolution of bleeding. Sponge counts were correct x2. Presentation: Vertex Time of Membrane Rupture: 0912/23/20 Amniotic Fluid Description: Clear Placental Delivery Description: Spontaneous Placenta Disposition: [facility] Cord Vessel Description: 3 Vessels Cord Entanglement: None A Gender: Female (1 minute): 8 (5 minute): 9 Delayed Cord Clamping: Yes Post Vaginal Delivery Medications Given After Delivery: IV Pitocin Episiotomy Description: None Laceration: None Complication Complications: None
[2020-12-23] MEDS: Acetaminophen 500 MG Tablet 1000 MG PO (19:48)
--- NOTE | 2020-12-23 20:55 | NURSING ---
placed at this time per charting by Jose mock RN
[2020-12-23] MEDS: 0.9% Saline Lock 10 ML Syringe IV ×2 (21:15→22:45)
[2020-12-23] MEDS: Ibuprofen 600 MG Tablet PO (21:47)
[2020-12-24] VITALS (7 sets, daily range): BP systolic 95–119; BP diastolic 49–71; PULSE 71–109; RESP 16–20; TEMP 36.4–36.7; O2SAT 100
--- NOTE | 2020-12-24 07:21 | NURSING ---
bedside report given to Tangela Espinoza RN and Enedelia Jeffries RN who are assuming care of pt at this time
--- NOTE | 2020-12-24 08:26 | PCM.PN.OB ---
Subjective Subjective Doing well. Denies painfulness. She is voiding post epidural. Denies heavy lochia. Objective Data Objective Data Vital Signs: Vital Signs Temp Pulse Resp BP Pulse Ox 97.8 F 109 H 16 119/71 98 12/24/20 08:00 12/24/20 08:00 12/24/20 08:00 12/24/20 08:00 12/23/20 20:45 Oxygen Delivery Method Room Air Weight: 86.9 kg Body Mass Index (BMI) 32.8 Intake & Output: Intake and Output for Last 24 Hours 12/22/20 12/23/20 12/24/20 23:59 23:59 23:59 Intake Total 2805.84 / 2805.84 Output Total 150 / 250 300 / 300 Balance 2655.84 / 2555.84 -300 / -300 Lab / Micro Data Result Diagrams: 12/23/20 09:20 Labs: Laboratory Results - last 24 hr 12/23/20 09:20: WBC 14.5 H, RBC 4.01 L, Hgb 11.0 L, Hct 34.6 L, MCV 86.3, MCH 27.4, MCHC 31.8 L, RDW Std Deviation 46.8 H, RDW Coeff of Kaya 14.8 H, Plt Count 337, MPV 10.8, Immature Gran % (Auto) 0.700, Neut % (Auto) 76.2 H, Lymph % (Auto) 17.7 L, [place] % (Auto) 5.0, Eos % (Auto) 0.1, Baso % (Auto) 0.3, Absolute Neuts (auto) 11.1 H, Absolute Lymphs (auto) 2.56, Nucleated RBC % 0 12/23/20 09:20: Blood Type O POSITIVE, Antibody Screen NEGATIVE Micro: Microbiology 12/23/20 09:45 Nasal Secretion SARS-CoV-2 Antigen (Rapid) - Final Physical Exam Const alert, oriented x3 and no apparent distress Resp normal respiratory effort and normal air movement Cardio regular rate, regular rhythm, S1 normal heart sound and S2 normal heart sound Narrative: Lochia moderate Uterus Palpation: uterus fundus firm and other OB fundus nontender Extremity no calf tenderness Neuro oriented x3 Assessment & Plan (1) (spontaneous vaginal delivery): PLAN: Formula feeding O positive Routine care
--- NOTE | 2020-12-24 08:29 | PCM.DC ---
Discharge Instructions Diet Discharge Diet: No restrictions Activity Discharge Activity: Return to Normal Activity May resume sexual activity in: 4-6 weeks Lifting Restrictions: 20-25lb Dressing / Incision Call your doctor if you observe: Fever of 101 or Higher, Using more than 1 pad per hour, Shortness of breath, Chest pain, Calf discomfort, Uncontrolled pain and - (Persistent or severe headache) Follow Up Care Please Follow Up With: Darinel Jacobs MD When: 3 weeks for telehealth follow up 6 weeks for visit Test Results: Test results from this visit will be discussed in further detail at your follow-up appointment, if applicable. Discharge Plan Admission Admit Date/Time: 12/23/20 08:45 Primary Reason for Your Visit: Vaginal delivery Attending Provider: Laura Sheriff Primary Care Provider: Pedro Pablo Gonzalez Instructions Patient Instructions: After a Vaginal , Understanding Depression Discharge Orders/Prescriptions Prescriptions: New ibuprofen 600 mg Tablet 600 mg PO Q8H PRN PRN (Reason: Pain Score 1-3) Qty: 30 RF: 0 Continued [id number]-[id number] 1 mg Tablet 1 tab PO DAILY RF: 0 Discontinued valacyclovir [Valtrex] 1 gram Tablet 1,000 mg PO DAILY RF: 0 Referrals / Follow Up: Pedro Pablo Gonzalez MD [Primary Care Provider] - Disposition Disposition (needs filled in before D/C Order can be placed): Home, Self Care
[2020-12-24] MEDS: Acetaminophen 500 MG Tablet 1000 MG PO (08:33)
[2020-12-24] MEDS: Ibuprofen 600 MG Tablet PO (16:24)
== END 2020-12-24 21:23 | disposition home or self-care (01) | DRG 541 ==
LOC: WPOUT 08:51 → WP 09:17
PROVIDERS: Obstetrics & Gynecology; Admitting Provider Obstetrics & Gynecology; PCP Family Medicine; Referring Provider Obstetrics & Gynecology; Visit Provider Obstetrics & Gynecology
DX: O98.32 Other infections with a predominantly sexual mode of transmission complicating childbirth (principal); A60.00 Herpesviral infection of urogenital system, unspecified; B00.9 Herpesviral infection, unspecified; O72.0 Third-stage hemorrhage; Z20.822 Contact with and (suspected) exposure to COVID-19; O99.52 Diseases of the respiratory system complicating childbirth; J45.990 Exercise induced bronchospasm; O47.1 False labor at or after 37 completed weeks of gestation; O99.334 Smoking (tobacco) complicating childbirth; F17.290 Nicotine dependence, other tobacco product, uncomplicated; Z3A.40 40 weeks gestation of pregnancy; Z37.0 Single live birth
CPT/HCPCS: 59025; 59050; 84112; 85025; 86850; 86900; 86901; 87426; 99218; J7120; A4216; G0378; J2405

== ENCOUNTER 2021-06-02 13:27 | Outpatient (CLI) | payer MEDICAID, SELFPAY ==
[2021-06-06 05:06] LABS: Chlamydia By Nucleic Acid AMP Negative (Negative)
[2021-06-06 13:11] LABS: Gonococcus By Nucleic Acid AMP Negative (Negative)
== END 2021-06-02 23:59 | disposition home or self-care (01) ==
LOC: LABSPEC 13:31
PROVIDERS: PCP Family Medicine; Visit Provider Obstetrics & Gynecology
DX: Z11.3 Encounter for screening for infections with a predominantly sexual mode of transmission (principal)
CPT/HCPCS: 87491; 87591

== ENCOUNTER 2021-07-07 11:18 | Outpatient (CLI) | payer MEDICAID, SELFPAY ==
[2021-07-07 12:18] LABS: Color, Urine Yellow (Yellow); Glucose, Dipstick Normal (Normal); Ketone-Dipstick 5 mg/dl (Negative); Leukocyte Esterase-Dipstick 500 /ul (Negative); Nitrite-Dipstick Negative (Negative); Occult Blood-Urine 10 /ul (Negative); Protein-Dipstick 30 mg/dl (Negative); Specific Gravity, Urine 1.025 (1.002-1.030); Urine Bilirubin Dipstick 1 mg/dL (Negative); Urine Clarity Sl. Cloudy (Clear); Urine Urobilinogen 4 mg/dl (Normal)
[2021-07-07 12:20] LABS: Absolute Lymphocyte Count 2.68 X10^3/uL (0.83-4.51); Absolute Neutrophil Count 7.2 X10^3/uL (2.0-7.7); Basophil# 0.05 X10^3/uL; Basophil% 0.5 % (0-1); Eosinophil# 0.03 X10^3/uL; Eosinophils% 0.3 % (0-5); Hemoglobin 11.6 g/dL (12.0-15.0); Lymphocyte # 2.68 X10^3/ul (0.83-4.51); Lymphocyte % 25.8 % (19-41); Mean Corp Hgb Conc 33.1 g/dL (32-36); Mean Corpuscular Hgb 26.7 pg (27.0-32.0); Mean Corpuscular Volume 80.6 fL (81-99); Mean Platelet Vol. 10.8 fl (6.2-12.0); Monocyte# 0.42 X10^3/uL; NRBC Flagged by Analyzer 0 % (0-5); Neutrophil # 7.18 X10^3/uL (2.7-7.7); Neutrophil % 69.1 % (47-70); Platelet Count 429 K/mm3 (150-450); RBC Distribution Width SD 46.5 fl (35.1-43.9); Red Blood Count 4.34 M/mm3 (4.2-5.4); White Blood Count 10.4 K/mm3 (4.4-11.0)
[2021-07-07 12:36] LABS: Amphetamine Urine VISTA NEGATIVE (<1000 ng/mL); Barbiturate Urine VISTA NEGATIVE (< 200 ng/mL); Benzodiazepine Urine VISTA NEGATIVE (< 200 ng/mL); Cocaine Urine VISTA NEGATIVE (< 300 ng/mL); Ecstacy Urine VISTA NEGATIVE (< 500 ng/mL); Methadone Urine VISTA NEGATIVE (< 300 ng/mL); PCP Urine VISTA NEGATIVE (< 25 ng/mL); THC Urine VISTA POSITIVE (< 50 ng/mL); Vista UDS pH Range 5
[2021-07-07 13:04] LABS: Thyroid Stim Hormone (TSH) 3.68 uIU/mL (0.358-3.74)
[2021-07-07 13:32] LABS: HIV - WCH Non-Reactive (Nonreactive); Hepatitis B Surface Antigen Non-Reactive (Nonreactive); Hepatitis C Antibody Non-Reactive (Nonreactive); Rubella IgG Reactive (Nonreactive); Syphilis Antibodies Non-reactive
== END 2021-07-07 23:59 | disposition home or self-care (01) ==
LOC: WOBLAB 11:21
PROVIDERS: PCP Family Medicine; Visit Provider Obstetrics & Gynecology
DX: Z34.82 Encounter for supervision of other normal pregnancy, second trimester (principal)
CPT/HCPCS: 36415; 80307; 81002; 84443; 85025; 86703; 86762; 86780; 86803; 87077; 87086; 87088; 87340

== ENCOUNTER → 2021-08-10 | Outpatient (CLI) | payer MEDICAID, SELFPAY | END | disposition home or self-care (01) | LOC: LABSPEC 11:36 | PROVIDERS: PCP Family Medicine; Visit Provider Obstetrics & Gynecology | DX: O23.42 Unspecified infection of urinary tract in pregnancy, second trimester (principal) | CPT/HCPCS: 87086; 87088 ==